=== PATIENT | female | born 1995 | race Caucasian/White ===

== ENCOUNTER 2018-05-16 11:08 | Outpatient (CLI) | payer BC ==
[2018-05-16 11:38] LABS: Hemoglobin 13.3 g/dL (12.0-16.0); Mean Corpuscular HGB CONC 33.1 g/dL (32.0-36.0); Mean Corpuscular Hemoglobin 30.2 pg (27.0-31.0); Mean Corpuscular Volume 91.3 fL (78.0-98.0); Mean Platelet Volume 7.3 fL (7.4-10.4); Platelet Count 305 thou/uL (130-400); RBC Distribution Width 11.9 % (11.5-14.5); Red Blood Cell (RBC) Count 4.41 mill/uL (4.20-5.40); White Blood Cell (WBC) Count 9.1 thou/uL (4.8-10.8)
[2018-05-16 11:55] LABS: Anion Gap 11 mmol/L (10-20); BUN (Urea Nitrogen) 9 mg/dL (7.0-18.7); Calc. Creatinine Clearance 0 mL/min (70-130); Calcium 9.2 mg/dL (7.8-10.44); Carbon Dioxide 25 mmol/L (22-29); Chloride 106 mmol/L (98-107); Estimated GFR-MDRD 85; Glucose 78 mg/dL (70-105); Potassium 4.2 mmol/L (3.5-5.1); Sodium 138 mmol/L (136-145)
[2018-05-16 11:56] LABS: BHCG - Serum Negative (NEGATIVE); Pregs Control Background? CLEAR/WHITE (CLR/WHITE); Pregs Control Bar Appear? YES (CONTROL BAR)
== END 2018-05-16 11:09 | disposition home or self-care (01) ==
LOC: LABBT 11:08
PROVIDERS: ATTEND Urology
DX: Z01.812 Encounter for preprocedural laboratory examination (principal); N30.10 Interstitial cystitis (chronic) without hematuria; R35.0 Frequency of micturition; R39.15 Urgency of urination; R35.1 Nocturia; R10.2 Pelvic and perineal pain
CPT/HCPCS: 80048; 81001; 84703; 85027

== ENCOUNTER 2018-05-17 08:22 | Day surgery (SDC) | payer BC ==
[2018-05-16 11:27] VITALS: BMI 20.9
[2018-05-17] MEDS ORDERED: CEFAZOLIN 1 GM VIAL ONE (10:03)
[2018-05-17] MEDS ORDERED: Sodium Chloride 0.9% 100 ML ONE (10:03)
[2018-05-17] MEDS ORDERED: Midazolam HCl 2 mg/2 ml Vial ONE ×2 (10:19→10:56)
[2018-05-17] MEDS ORDERED: Fentanyl 100 MCG/2 ML VIAL ONE (10:56)
[2018-05-17] MEDS ORDERED: Metoclopramide HCl 10 MG/2 ML VIAL ONE (16:29)
[2018-05-17] MEDS ORDERED: Ondansetron HCl/PF 4 MG/2 ML Vial ONE (16:29)
[2018-05-17] MEDS ORDERED: Dexamethasone 20 MG/5 ML VIAL ONE (16:29)
[2018-05-17] MEDS ORDERED: Lidocaine 1% PF 5 ML VIAL ONE (16:29)
[2018-05-17] MEDS ORDERED: PROPOFOL 200 MG/20 ML VIAL ONE (16:29)
--- NOTE | 2018-05-17 22:06 | OP ---
DATE OF SERVICE: 05/17/2018 PREOPERATIVE DIAGNOSIS: Lower urinary tract symptoms. POSTOPERATIVE DIAGNOSIS: Lower urinary tract symptoms. SURGEON: Angie Cook MD ANESTHESIA: General Laryngeal mask airway. FINDINGS: Minimal glomerulations noted on the floor of the bladder only, no terminal hematuria. Capacity was 800. The procedure was cystoscopy with hydrodistention. No blood loss. No complications. INDICATIONS: The patient is a 23-year-old female with significant lower urinary tract symptoms and pelvic pain who was referred by a livestock speculator to a urologist, who gave her the diagnosis of interstitial cystitis without performing hydrodistention. She is not making definitive improvements and wanted to both have this procedure done for diagnostic and potentially therapeutic reasons. The patient was brought into the room by Anesthesia and placed on the table in supine position. After receiving general anesthetic, her legs were placed in lithotomy position and her perineum was prepped and draped in sterile fashion. Using a 21-Grenadian cystoscope and 30-degree lens, urethra was traversed and the bladder inspected. It appeared normal and the ureteral orifices were in normal position with the water level at approximately 8 cm above the patient's bladder. The bladder was filled to gravity and when the drip slowed, it was stopped and then held at this pressure for 5 minutes and it was drained. No terminal hematuria was noted and a total of approximately 550 mL was obtained. Then, this was refilled and again watching for the flow to slow before holding the fluid filling and upon inspection, mild glomerulations with oozing was noted on the floor of the bladder only and no other spot. The rest of the bladder was entirely normal. Pictures were taken of this area and then the bladder was drained at this time and noted a volume of 800. Again, no terminal hematuria was noted, and the bladder was fully drained. She was then awakened and transferred to PACU in stable condition. MILADY
== END 2018-05-17 12:40 | disposition home or self-care (01) ==
LOC: SDC 08:22
PROVIDERS: ATTEND Urology
PROC: 0T7B8ZZ Dilation of Bladder, Via Natural or Artificial Opening Endoscopic (ICD-10-PCS; principal; 2018-05-17)
DX: N30.10 Interstitial cystitis (chronic) without hematuria (principal); R35.1 Nocturia; R35.0 Frequency of micturition; R39.15 Urgency of urination; J32.9 Chronic sinusitis, unspecified; Z79.899 Other long term (current) drug therapy; Z88.0 Allergy status to penicillin; Z88.1 Allergy status to other antibiotic agents
CPT/HCPCS: J0690; J1100; J2001; J2250; J2405; J2704; J2765; J3010; J7050